=== PATIENT | female | born 1990 | race Caucasian/White ===

== ENCOUNTER → 2021-03-02 15:19 | Outpatient (CLI) | payer OTHER, SELFPAY ==
--- NOTE | ~2021-03-02 | US_ITS ---
EXAMINATION: US OB /maternal detail EXAM DATE: 03/02/2021 16:02 INDICATION: Encounter for screening. 2nd trimester. TECHNIQUE: Pelvic obstetrical transabdominal sonogram was performed by a technologist. There are mu ltiple grayscale and Doppler images available for interpretation. There are no earlier studies of th is gestation for comparison. FINDINGS: There is a single fetus identified in vertex presentation with a heart rate of 158 beats pe r minute. The placenta is located in the anterior position. There is no sonographic evidence of retr oplacental hemorrhage identified. There is subjectively expected amount of amniotic fluid. Placental margin to internal cervical os distance is 3.1 cm. BIOMETRIC DATA: Biparietal diameter (BPD): 4.8 cm ----------------> 20 weeks 3 days. Head circumference (HC): 17.8 cm ----------------> 20 weeks 2 days. Abdominal circumference (AC): 15.7 cm ----------> 20 weeks 6 days. Femur length (FL): 3.2 cm --------------------------> 19 weeks 6 days. These measurements are concordant. HC/AC ratio is 1.13 (The 5th -- 95th percentile range is 1.07-1.25. Estimated weight is 353 g +/- 53 g. This is the 70th percentile when the currently reported cl inical gestation age 20 weeks 0 days, clinical estimated date of delivery (CHERYL-OPE) 07/20 is used. Fet al estimated gestational age based on measurements from this exam is 20 weeks 3 days, with an estimat ed date of delivery (CHERYL-AUA) 07/17. ANATOMIC SURVEY: The following anatomy is identified and is sonographically normal in appearance: Cerebral ventricles Cerebellum Cisterna magna Nuchal fold CTL-spine Four-chamber heart Diaphragm Stomach Kidneys Bladder Three-vessel cord Cord insertion IMPRESSION: 1. Single fetus in vertex presentation with heart rate 3.1 beats per minute. 2. Estimated weight of 353 grams, 70th percentile using the currently reported clinical gestat ion age of 20 weeks 0 days, CHERYL(OPE) 07/20. 3. Anterior placenta, marginal 3.1 cm from internal cervical os. 4. Normal anatomic survey. Reviewed, dictated and finalized at location A. IMPRESSION: 1. Single fetus in vertex presentation with heart rate 3.1 beats per minute. 2. Estimated weight of 353 grams, 70th percentile using the currently re ported clinical gestation age of 20 weeks 0 days, CHERYL(OPE) 07/20. 3. Anterior placenta, marginal 3.1 cm from internal cervical os. 4. Normal anatomic survey.
== END ==
PROVIDERS: Visit Provider Obstetrics & Gynecology
DX: Z36.9 Encounter for antenatal screening, unspecified (principal); Z3A.20 20 weeks gestation of pregnancy
CPT/HCPCS: 76805